=== PATIENT | female | born 1955 | race Caucasian/White ===

== ENCOUNTER 2019-07-19 21:32 | Emergency (ER) | payer OTHER ==
[~2019-07-19] VITALS: Ht 157.5 cm; Wt 55.5 kg
[~2019-07-19 21:32] MED LIST: DOCU-144 PO; HC30CR25 TOP
[2019-07-19 21:34] VITALS: Ht 157.5 cm; Wt 55.5 kg
[2019-07-20 00:40] VITALS: BP 178/98; PULSE 76; RESP 16
== END 2019-07-20 00:41 | disposition home or self-care (01) ==
LOC: E/R 21:32
DX: K64.4 Residual hemorrhoidal skin tags (principal); I10 Essential (primary) hypertension
CPT/HCPCS: 85025; 99284